=== PATIENT | male | born 1975 | race African-American/Black ===

== ENCOUNTER 2018-07-25 21:00 | Emergency (ER) | payer MEDICAID ==
[~2018-07-25] VITALS: Ht 193 cm; Wt 82.0 kg
[2018-07-25] MEDS ORDERED: IBUPROFEN 800MG TABLET PO ONE (23:15)
[2018-07-26] MEDS ORDERED: HYDROCODONE/ACETAMINOPHEN 5/325MG TABLET PO ONE (00:15)
[2018-07-26 00:58] VITALS: BP 142/80
== END 2018-07-26 01:03 | disposition home or self-care (01) ==
LOC: ER 21:00
DX: M77.8 Other enthesopathies, not elsewhere classified (principal); R03.0 Elevated blood-pressure reading, without diagnosis of hypertension
CPT/HCPCS: 73110; 99283